=== PATIENT | male | born 1980 | race Caucasian/White ===

== ENCOUNTER 2020-03-07 01:28 | Emergency (ER) | payer SELFPAY ==
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
[2020-03-07 01:51] VITALS: BP 164/92; TEMP 97.8; O2SAT 98
[2020-03-07] MEDS ORDERED: AMOXICILLIN & POT CLAVULANATE 875 MG TAB PO ONE (02:09)
[2020-03-07] MEDS ORDERED: IBUPROFEN 200 MG TAB PO ONE (02:09)
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
== END 2020-03-07 02:15 ==
LOC: ER 01:28
DX: S02.2XXA Fracture of nasal bones, initial encounter for closed fracture (principal); F10.129 Alcohol abuse with intoxication, unspecified; X58.XXXA Exposure to other specified factors, initial encounter; Y92.9 Unspecified place or not applicable

== ENCOUNTER → 2020-03-11 | Outpatient (CLI) | payer SELFPAY | LOC: LAB.NP 15:14 | PROVIDERS: ATTEND Nurse Practitioner Family | DX: Y09 Assault by unspecified means (principal) ==